=== PATIENT | male | born 1950 | race Caucasian/White ===

== ENCOUNTER 2021-12-09 13:47 | Inpatient (IN) ==
[2021-12-09] MEDS ORDERED: dexAMETHasone**PF** 10 MG/ML VIAL IV ONE (14:13)
[2021-12-09] MEDS ORDERED: SODIUM CHLORIDE 0.9% 500 ML IV ONE (14:13)
--- NOTE | 2021-12-09 14:17 | Emergency Department Note ---
Impression & Plan Difficulty in swallowing, Tonsillar cancer, Throat swelling ED Provider Note Provider: Han Breen MD DATE OF SERVICE: 12/09/2021 CHIEF COMPLAINT: HISTORY OF PRESENT ILLNESS: Patient is a 71-year-old gentleman past medical history including CAD, diverticulitis, COVID, gout, and head neck cancer following with oncology currently on chemotherapy presenting here today stating that he is having pain in his throat and difficulty eating and drinking. Patient states he believes is related to chemotherapy with his last treatment last week. States he feels like his throat is closing up. Reports has not been able to eat and drink and again choked on pills last night. He reports spitting up a bit of blood with this last night. No further episodes today and was able to take some of his smaller pills and small amount of liquid. Not able to eat today. Patient states this is 6 around the chemotherapy and has had sore throat each time but this seems to be a bit worse. No fevers reported. Some body aches particular in the joints and left elbow reported. No falls reported. Denies any difficulty breathing or speaking. Patient reports a history of radiation here but no prior surgeries on the neck. Talked with his oncologist who referred him here today. REVIEW OF SYSTEMS: A total of 10 review of systems was obtained and negative except as stated above in the HPI. PAST MEDICAL HISTORY: As noted above MEDICATIONS: Reviewed home medications SOCIAL HISTORY: , lives at home PHYSICAL EXAM: GENERAL: alert and oriented in no acute distress on stretcher Head: normocephalic and atraumatic EYES: No injection, discharge or icterus. PERRL NECK: Trachea midline. Supple. ENT: Mucous membranes pink and moist. Pharynx without erythema or exudate visualized to the oropharynx LUNGS: Airway patent. No retractions. Breath sounds clear with good air entry bilaterally. HEART: Regular rate and rhythm. No chest wall tenderness with left upper chest port in place and healed surgical scar over the left shoulder. ABDOMEN: Soft and non-tender, without guarding or rebound. SKIN: Acyanotic, warm, dry, without rashes EXTREMITIES: Without swelling, tenderness or deformity NEUROLOGICAL: No focal deficits. No aphasia. No facial droop or slurred speech. Patient's laboratory studies and imaging reviewed. Differential includes Viral syndrome, tonsillitis, streptococcal pharyngitis, mononucleosis, peritonsillar abscess, retropharyngeal abscess, influenza, mass/head neck cancer as well as other pathologies. IMPRESSION/MEDICAL DECISION MAKING: Patient in no respiratory distress not stridulous here without complaints of breathing issues. History of head neck cancer with prior radiation currently on chemotherapy with some sore throat developing over the past 7 days or so. Was on steroids about 10 days ago. Reports difficulty now swallowing liquids such as water as well as some of his larger pills. He called his oncologist who referred him here. No gross evidence of significant neck swelling or pharyngeal edema on gross physical exam at bedside. Given some IV fluids given decreased intake and sent for CT scan of the neck to look for underlying structural abnormality given his history of cancer here. Given a dose of steroids for anti-inflammatory effect given reported history. Blood work with slightly elevated white blood cell count of 12.2 and hemoglobin slightly higher at 10.6 although platelets are slightly lower at 117. Electrolytes, LFTs, and renal function without severe abnormality. CT scan of the neck per radiology with findings of modest mucosal edema and thickening within the uvula, hypopharynx, epiglottis, and false vocal cords. Question if this is reaction to chemotherapy. Discussed with oncology. Again patient not stridulous and I doubt this is infectious given the presentation. On reevaluation the patient was stating he was having some improvement but still not resolution of symptoms. Oncology reports this can be a complication with mucositis and inflammation of the veins of the throat. Again the patient does not present with significant infectious symptomatologies. Had some improvement with the Dex but in shared decision making he wished to stay for continued IV steroids and further improvement before going an home an hour away. Discussed with the hospitalist. DIAGNOSIS: Laryngeal cancer, difficulty swallowing, throat edema DISPOSITION: Hospitalist will evaluate Patient was agreeable with this plan. 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 Symptoms at time of cough/congestion- resolved few days later. Patient states he had subsequent negative home test. MRSA (methicillin resistant staph aureus) culture positive 11 years ago lungs and blood > "has been cleared" Surgical History H/O colonoscopy H/O hernia repair H/O knee surgery R/L replacements H/O shoulder surgery R/L shoulder replacements History of back surgery History of cardiac cath 2016 > BMS x1, 11/20/2019 > nonobstructive disease and patent RCA stent History of CEA (carotid endarterectomy) right (2014) Hx of appendectomy Hx of elbow surgery ulnar nerve Port-A-Cath in place (07/30/21) Access port placement with fluoroscopy. Dr. Spann 07/30/2021 Family History Aunt Breast cancer Cancer Brother Cancer Diabetes Mother Hypertension Grandmother (Maternal) Stroke Grandfather (Paternal) Stroke Uncle Cancer Father COPD (chronic obstructive pulmonary disease) Social History Smoking Status: Never smoker Second Hand Exposure: No; Hx Alcohol Use: No Hx Substance Use: No Preferred Language: [place]ian Communication Ability: Effective Surgical Garment [employer]er Required: No Beliefs That Will Affect Care: None marital status: Current Living Situation: Spouse How many Children do You have: 4 Feels Safe at Home: Yes Assistive Devices: None Allergies Allergies Allergy/AdvReac Type Severity Reaction Status Date / Time Penicillins Allergy Mild Rash Verified 12/09/21 19:46 adhesive AdvReac Mild Verified 12/09/21 19:46 Home Meds Home Medications Medication Instructions Recorded Confirmed pantoprazole 40 mg tablet,delayed 40 mg PO QAM 07/19/21 12/09/21 release rosuvastatin 40 mg tablet 40 mg PO QAM 07/19/21 12/09/21 tramadol 50 mg tablet 100 mg PO QAM MDD 6 TABS 07/20/21 12/09/21 bisoprolol fumarate 5 mg tablet 2.5 mg PO DAILY tab 10/04/21 12/09/21 multivitamin 1 tab PO DAILY 10/04/21 12/09/21 aspirin 81 mg chewable tablet 81 mg PO PRN tab 10/06/21 12/09/21 tramadol 50 mg tablet 50 mg PO QID PRN MDD 6 TABS 12/09/21 12/09/21 Results & Data (ED) Vital Signs Vital Signs - 24 hr 12/09/21 13:49 12/09/21 14:20 12/09/21 15:30 Temperature 36.4 C L Temperature Source Temporal Artery Scan Pulse Rate 104 H Pulse Rate [Apical] 80 Pulse Rhythm Regular Pulse Strength Normal Respiratory Rate 20 19 Respiratory Effort / Characteristics Non-Labored Spontaneous Respiratory Depth Normal Respiratory Pattern Regular Blood Pressure 120/73 Blood Pressure [Left Arm] 105/63 Blood Pressure Mean 88 Blood Pressure Mean [Left Arm] 77 Blood Pressure Position Sitting Pulse Oximetry 98 98 99 Oxygen Delivery Method Room Air Room Air Room Air Sepsis Recent Fever Within 48 Hours No Sepsis New/Unexplained Change in Mental Status N/A Sepsis Action Taken by Nursing No Action Required 12/09/21 17:00 12/09/21 19:00 Temperature Temperature Source Pulse Rate Pulse Rate [Apical] 72 73 Pulse Rhythm Pulse Strength Respiratory Rate 19 16 Respiratory Effort / Characteristics Respiratory Depth Respiratory Pattern Blood Pressure Blood Pressure [Left Arm] 111/74 95/61 L Blood Pressure Mean Blood Pressure Mean [Left Arm] 86 72 Blood Pressure Position Pulse Oximetry 97 95 Oxygen Delivery Method Room Air Room Air Sepsis Recent Fever Within 48 Hours Sepsis New/Unexplained Change in Mental Status Sepsis Action Taken by Nursing Laboratory Data Result diagrams: 12/09/21 14:20 12/09/21 14:20 Lab Results 12/09/21 12/09/21 12/09/21 Range/Units 14:20 14:20 15:23 WBC 12.27 H (4.8-10.8) K/uL RBC 3.05 L (4.7-6.1) M/uL Hgb 10.6 L (14.0-18.0) g/dL Hct 31.6 L (42-52) % MCV 103.6 H (80-100) fL MCH 34.8 H (25-34) pg MCHC 33.5 (32-36) g/dL RDW Std Deviation 79.3 H (36.4-46.3) fL RDW Coeff of Kris 21.1 H (11.5-14.5) % Plt Count 117 L (130-400) K/uL MPV 9.5 (7.4-10.4) fL Neutrophils % (Manual) 87.8 % Lymphocytes % (Manual) 6.1 % Monocytes % (Manual) 6.1 % Neutrophils # (Manual) 10.77 H (1.4-6.5) K/uL Total Absolute Neuts 10.77 H (1.4-6.5) K/uL Lymphocytes # (Manual) 0.75 L (1.2-3.4) K/uL Total Abs Lymphocytes 0.75 L (1.2-3.4) K/uL Monocytes # (Manual) 0.75 H (0.11-0.59) K/uL Polychromasia 1+ Anisocytosis Present Tear Drop Cells 1+ Sodium 137 (136-145) mmol/L Potassium 4.1 (3.5-5.1) mmol/L Chloride 102 (98-107) mmol/L Carbon Dioxide 26 (21-32) mmol/L Anion Gap 9 (3-11) BUN 31 H (6-23) mg/dl Creatinine 1.34 (0.6-1.4) mg/dl Est Cr Clr Drug Dosing 50.6 ml/min Est GFR ( Amer) 61.3 ml/min Est GFR (Non-Af Amer) 52.9 ml/min BUN/Creatinine Ratio 23.1 H (10-20) Glucose 119 H (70-99(Fasting)) mg/dl Calcium 9.2 (8.5-10.1) mg/dl Magnesium 1.9 (1.7-2.4) mg/dl Total Bilirubin 0.7 (0.2-1.0) mg/dl AST 17 (13-39) U/L ALT 16 (7-52) U/L Alkaline Phosphatase 78 (34-104) U/L Total Protein 6.7 (6.0-8.3) gm/dl Albumin 4.0 (3.4-5.0) gm/dl Globulin 2.7 (2.5-4.0) gm/dl Albumin/Globulin Ratio 1.5 (0.9-2) SARS-CoV-2 (PCR) NEGATIVE (Negative) Influenza Type A (PCR) Negative (Neg) Influenza Type B (PCR) Negative (Neg) RSV (RT-PCR) Negative (Neg) Administered Medications Discontinued Medications Dexamethasone Sodium Phosphate (DexamethasonePf 10 Mg/Ml Vial) 10 mg IV NOW ONE Stop: 12/09/21 14:14 Last Admin: 12/09/21 14:27 Dose: 10 mg Documented by: [id number] Sodium Chloride (Nss) 500 mls @ 999 mls/hr IV .Q31M ONE Stop: 12/09/21 14:43 Last Infusion: 12/09/21 15:00 Dose: 0 mls/hr Documented by: [id number] Admin: 12/09/21 14:27 Dose: 999 mls/hr Documented by: [id number] Ioversol (Optiray 320 100ml) 94 ml IV ONCE ONE Stop: 12/09/21 16:21 Last Admin: 12/09/21 16:21 Dose: 94 ml Documented by: [id number] Imaging Data Radiologist's Impression: Soft Tissue Neck CT 12/09/21 13:58 CT soft tissue neck w con HISTORY: Cancer history, throughout swelling, difficulty swallowing TECHNIQUE: Multiaxial CT images of the neck were performed following the intr avenous administration of 94 cc of Optiray 320. Sagittal coronal reformations were performed at the workstation by the radiologist. COMPARISON STUDY: None. FINDINGS: There is moderate submucosal edema/thickening within the uvula, mucosal linings of the hypopharynx, epiglottis, and false vocal cords. This could represent post radiation change or angioedema-type reaction. An epiglottitis/pharyngitis could also have a similar appearance in the appropriate clinical setting. The epiglottis measures up to 5 mm in thickness. There is also a submucosal edema within the vallecula. The paravertebral fat spaces are maintained. No abscess identified. There is mild narrowing of the hypopharynx. Questionable mild submucosal edema at the 4 focal cords. No abscess or lymphadenopathy identified. Multiple irregular/spiculated masses within the lung apices some which demonstrate cavitation. Dominant right apical mass measures 2.4 cm. This is consistent with metastatic disease. No suspicious osseous lesions identified. The paranasal sinuses and mastoid air cells are clear. The orbits and visualized brain parenchyma are unremarkable. Moderate calcified plaque within the left carotid bifurcation resulting in mild narrowing of the distal left common carotid artery and proximal left internal carotid artery. The right carotid arteries are widely patent. The parotid and submandibular glands are symmetric. The thyroid gland enhances normally. There is trace prevertebral edema. Partially visualized left subclavian Port-A-Cath is noted. Mild thickeni ng of the carotid tinsley of the bifurcation. This also favors post radiation change. IMPRESSION: 1. There is moderate submucosal edema/thickening within the uvula, mucosal linings of the hypopharynx, epiglottis, and false vocal cords. This could r epresent post radiation change or angioedema-type reaction. An epiglottitis/pharyngitis could also have a similar appearance in the appropriate clinical setting. 2. Pulmonary metastatic disease again noted. 3. Additional findings as described above. ACT 112: Negative or not required by law. Electronically signed by: Dung Velazquez M.D. 12/09/2021 4:38 PM Discharge Plan Visit Data Chief Complaint: Sore Throat Stated Complaint: THROAT CLOSING ED Provider: Han Breen Discharge Problem: Difficulty in swallowing, Tonsillar cancer, Throat swelling Patient Disposition: Being Evaluated by Hospitalist Forms Stand Alone Forms: [facility] Prescriptions Prescriptions: No Action bisoprolol fumarate 5 mg tablet 2.5 mg PO DAILY RF: 0 multivitamin Tablet 1 tab PO DAILY RF: 0 pantoprazole 40 mg tablet,delayed release (DR/EC) 40 mg PO QAM RF: 0 rosuvastatin 40 mg tablet 40 mg PO QAM RF: 0 tramadol 50 mg tablet 100 mg PO QAM MDD 6 TABS RF: 0 aspirin 81 mg tablet,chewable 81 mg PO PRN RF: 0 tramadol 50 mg tablet 50 mg PO QID MDD 6 TABS PRN (Reason: Pain) RF: 0 Referrals Referrals: PCP,NO [Primary Care Provider] - Discharge Problem: Difficulty in swallowing Qualifiers: Dysphagia type: unspecified Qualified Code(s): R13.10 - Dysphagia, unspecified
[2021-12-09 14:40] LABS: Mean Corpuscular Hgb Conc 33.5 g/dL (32-36); Mean Platelet Volume 9.5 fL (7.4-10.4); Platelet Count 117 K/uL (130-400)
[2021-12-09 15:11] LABS: ALC (manual) 0.75 K/uL (1.2-3.4); ANC (manual) 10.77 K/uL (1.4-6.5); Anisocytosis Present; Hematocrit (blood only) 31.6 % (42-52); Hemoglobin 10.6 g/dL (14.0-18.0); Lymphocytes # (manual) 0.75 K/uL (1.2-3.4); Lymphocytes % (manual) 6.1 %; Mean Corpuscular Hemoglobin 34.8 pg (25-34); Mean Corpuscular Volume 103.6 fL (80-100); Monocytes # (manual) 0.75 K/uL (0.11-0.59); Monocytes % (manual) 6.1 %; Neutrophils # (manual) 10.77 K/uL (1.4-6.5); Neutrophils % (manual) 87.8 %; Polychromasia 1+; RDW Coefficient of Variation 21.1 % (11.5-14.5); RDW Standard Deviation 79.3 fL (36.4-46.3); Red Blood Count 3.05 M/uL (4.7-6.1); Tear Drop Cells 1+; White Blood Count 12.27 K/uL (4.8-10.8)
[2021-12-09 15:55] LABS: Albumin Globulin Ratio 1.5 (0.9-2); BUN Creatinine Ratio 23.1 (10-20); Bilirubin,Total 0.7 mg/dl (0.2-1.0); Calcium 9.2 mg/dl (8.5-10.1); Creatinine Clr Calc Pharmacy 50.6 ml/min; Est GFR (African American) 61.3 ml/min; Est GFR (Non-African American) 52.9 ml/min; Globulin 2.7 gm/dl (2.5-4.0); Magnesium 1.9 mg/dl (1.7-2.4); Total Protein 6.7 gm/dl (6.0-8.3)
[2021-12-09 16:17] LABS: Potassium 4.1 mmol/L (3.5-5.1)
[2021-12-09] MEDS ORDERED: OPTIRAY 320 100ml IV ONE (16:20)
--- NOTE | 2021-12-09 16:39 | CT Scan Report ---
CT soft tissue neck w con HISTORY: Cancer history, throughout swelling, difficulty swallowing TECHNIQUE: Multiaxial CT images of the neck were performed following the intravenous administration o f 94 cc of Optiray 320. Sagittal coronal reformations were performed at the workstation by the radiol ogist. COMPARISON STUDY: None. FINDINGS: There is moderate submucosal edema/thickening within the uvula, mucosal linings of the hypo pharynx, epiglottis, and false vocal cords. This could represent post radiation change or angioedema- type reaction. An epiglottitis/pharyngitis could also have a similar appearance in the appropriate cl inical setting. The epiglottis measures up to 5 mm in thickness. There is also a submucosal edema wit hin the vallecula. The paravertebral fat spaces are maintained. No abscess identified. There is mild narrowing of the hypopharynx. Questionable mild submucosal edema at the 4 focal cords. No abscess or lymphadenopathy identified. Multiple irregular/spiculated masses within the lung apices some which de monstrate cavitation. Dominant right apical mass measures 2.4 cm. This is consistent with metastatic disease. No suspicious osseous lesions identified. The paranasal sinuses and mastoid air cells are cl ear. The orbits and visualized brain parenchyma are unremarkable. Moderate calcified plaque within th e left carotid bifurcation resulting in mild narrowing of the distal left common carotid artery and p roximal left internal carotid artery. The right carotid arteries are widely patent. The parotid and s ubmandibular glands are symmetric. The thyroid gland enhances normally. There is trace prevertebral e sarah. Partially visualized left subclavian Port-A-Cath is noted. Mild thickening of the carotid tinsley of the bifurcation. This also favors post radiation change. IMPRESSION: 1. There is moderate submucosal edema/thickening within the uvula, mucosal linings of the hypopharynx , epiglottis, and false vocal cords. This could represent post radiation change or angioedema-type re action. An epiglottitis/pharyngitis could also have a similar appearance in the appropriate clinical setting. 2. Pulmonary metastatic disease again noted. 3. Additional findings as described above. ACT 112: Negative or not required by law. Electronically signed by: Dung Velazquez M.D. 12/09/2021 4:38 PM
[2021-12-09 16:58] LABS: Influenza A virus by PCR Negative (Neg); Influenza B virus by PCR Negative (Neg); RSV by PCR Negative (Neg); SARS CoV2 RNA(COVID-19) InHosp NEGATIVE (Negative)
--- NOTE | 2021-12-09 17:54 | History & Physical Report ---
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- he reports he has not had once since moving here (2) Tonsillar cancer: Plan: As above and per HPI (3) Throat swelling: Plan: As above (4) Hyperlipidemia: Plan: Continue with Rosuvastatin 40mg PO daily (5) Ascending aortic aneurysm: Plan: Last imaged in 2019 4.4 - continue with BB and cholesterol management - screenings with cardiology (6) Carotid stenosis: Plan: As above remain with BP control and lipid control screening with cardiology group (7) CAD (coronary artery disease): Plan: Single BMS to RCA 2015 - continue asa, BB, statin (8) High blood pressure: Plan: As above History of Present Illness Primary Care Provider: NO PCP 71 YOM with medical history of: Squamous cell carcinoma of the left tonsil,, 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 Patient comes to the EMD today for complaints of increase in throat pain and difficulty swelling. Patient is still undergoing chemotherapy and is on cycle #2 whic appears to be carboplatin in combination with 5FU and pembrolizumab. He normally has some difficulty with dysphagia and has adjusted to this, but is having increase difficulty with swallowing small amount of liquid as well as his pills. He endorses difficulty swallowing a pill last night that resulted in him coughing quite a bit before getting it to come up. He normally will take his medications with a glass of milk, preferably chocolate. The patient had routine labs performed in the EMD and CT soft tissue of the neck. Labs were remarkable for mild leukocytosis- patient just received Neulasta- and CT scan of the neck was notable for moderate submucosal thickening within the uvula, hypopharynx, epiglottis and false chords. Patient was given 10mg IV Decadron in the EMD. Patient will be admitted for observation of his symptoms to improve with systemic steroids, will continue with magic mouthwash, and oral moisturizer. Will continue with Decadron 6mg IV q12 hours starting tomorrow. May benefit from updated swallow study. COVID and Influenza tests on admission are: NEGATIVE Allergies Allergy/AdvReac Type Severity Reaction Status Date / Time Penicillins Allergy Mild Rash Verified 12/09/21 19:46 adhesive AdvReac Mild Verified 12/09/21 19:46 Home Medications Medication Instructions Recorded Confirmed Type pantoprazole 40 mg tablet,delayed 40 mg PO QAM 07/19/21 12/09/21 History release rosuvastatin 40 mg tablet 40 mg PO QAM 07/19/21 12/09/21 History tramadol 50 mg tablet 100 mg PO QAM MDD 6 TABS 07/20/21 12/09/21 History bisoprolol fumarate 5 mg tablet 2.5 mg PO DAILY tab 10/04/21 12/09/21 History multivitamin 1 tab PO DAILY 10/04/21 12/09/21 History aspirin 81 mg chewable tablet 81 mg PO PRN tab 10/06/21 12/09/21 History tramadol 50 mg tablet 50 mg PO QID PRN MDD 6 TABS 12/09/21 12/09/21 History Past Med/Surg History Medical History CAD (coronary artery disease) Single vessel CAD s/p BMS to RCA (2015) Cancer tongue, tonsil, 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 Symptoms at time of cough/congestion- resolved few days later. Patient states he had subsequent negative home test. MRSA (methicillin resistant staph aureus) culture positive 11 years ago lungs and blood > "has been cleared" Surgical History H/O colonoscopy H/O hernia repair H/O knee surgery R/L replacements H/O shoulder surgery R/L shoulder replacements History of back surgery History of cardiac cath 2015 > BMS x1, 11/20/2019 > nonobstructive disease and patent RCA stent History of CEA (carotid endarterectomy) right (2014) Hx of appendectomy Hx of elbow surgery ulnar nerve Port-A-Cath in place (07/30/21) Access port placement with fluoroscopy. Dr. Spann 07/30/2021 Family History Aunt Breast cancer Cancer Brother Cancer Diabetes Mother Hypertension Grandmother (Maternal) Stroke Grandfather (Paternal) Stroke Uncle Cancer Father COPD (chronic obstructive pulmonary disease) Social History Smoking Status: Never smoker Second Hand Exposure: Yes (childhood); Tobacco Cessation Education Requested by Patient: No Hx Alcohol Use: No Hx Substance Use: No Preferred Language: French Communication Ability: Effective Reel Stripper Required: Yes Beliefs That Will Affect Care: None marital status: Current Living Situation: Spouse How many Children do You have: 4 Other Information That Helps Us Care for You: No Feels Safe at Home: Yes Safety Concerns: Feels Safe At This Time Assistive Devices: Glasses and Hearing Aid - Bilateral Review of Systems Review of Systems: REVIEW OF SYSTEMS: Constitutional: No fever, sweats or chills Eyes: No diplopia, no worsening or blurred vision ENT:(+) difficulty swallowing Respiratory: No cough, sputum, dyspnea at rest or on exertion Cardiovascular: No chest pain, tightness or palpitations Abdomen: No pain, nausea, vomiting, diarrhea or constipation Musculoskeletal: No joint pain, calf pain, swelling Neurologic: No weakness, numbness/tingling, or balance problems Psychiatric: No anxiety or depression Skin: No rash or itch Physical Exam Physical Exam: PHYSICAL EXAM: General: awake, alert, no apparent distress Head: Normocephalic, atraumatic ENT: PERRL, EOMI, no pharyngeal exudate, mucous membranes moist, no lesions or abscess noted to soft palate or hypopharynx, no enlarged cervical node, trachea midline. Neuro: AAO x 3, speech clear and appropriate, strength intact bilaterally 5/5, sensation intact and equal all extremities and dermatomes, no pronator drift Chest: equal rise and fall of the chest, no accessory muscle use, no heaves or thrills, Clear to auscultation, on room air, Cardiac: Regular rate and rhythm, telemetry reviewed, skin warm dry, cap refill <3 seconds, peripheral pulses +2 no JVD, no murmur, GI: NABS x 4 quadrants, soft, nontender to palpation, no rebound, guarding or tenderness : Spontaneously voiding, no pain, no CVA tenderness, Extremities: Normal inspection, no peripheral edema or erythema, calfs nontender to palpation Psych: Normal mood and affect Skin: no rash or erythema Results & Data Results & Data ([facility]) Vital Signs (Past 12 Hours) Vital Signs Temp Pulse Pulse Resp BP BP Pulse Ox 12/09/21 15:30 80 19 105/63 99 12/09/21 14:20 98 12/09/21 13:49 36.4 C L 104 H 20 120/73 98 Laboratory Results Abnormal lab results 12/09/21 12/09/21 Range/Units 14:20 14:20 WBC 12.27 H (4.8-10.8) K/uL RBC 3.05 L (4.7-6.1) M/uL Hgb 10.6 L (14.0-18.0) g/dL Hct 31.6 L (42-52) % MCV 103.6 H (80-100) fL MCH 34.8 H (25-34) pg RDW Std Deviation 79.3 H (36.4-46.3) fL RDW Coeff of Kris 21.1 H (11.5-14.5) % Plt Count 117 L (130-400) K/uL Neutrophils # (Manual) 10.77 H (1.4-6.5) K/uL Total Absolute Neuts 10.77 H (1.4-6.5) K/uL Lymphocytes # (Manual) 0.75 L (1.2-3.4) K/uL Total Abs Lymphocytes 0.75 L (1.2-3.4) K/uL Monocytes # (Manual) 0.75 H (0.11-0.59) K/uL BUN 31 H (6-23) mg/dl BUN/Creatinine Ratio 23.1 H (10-20) Glucose 119 H (70-99(Fasting)) mg/dl Diagnostic Findings Soft Tissue Neck CT 12/09/21 13:58 CT soft tissue neck w con HISTORY: Cancer history, throughout swelling, difficulty swallowing TECHNIQUE: Multiaxial CT images of the neck were performed following the intravenous administration of 94 cc of Optiray 320. Sagittal coronal reformations were performed at the workstation by the radiologist. COMPARISON STUDY: None. FINDINGS: There is moderate submucosal edema/thickening within the uvula, mucosal linings of the hypopharynx, epiglottis, and false vocal cords. This could represent post radiation change or angioedema-type reaction. An epiglottitis/pharyngitis could also have a similar appearance in the appropriate clinical setting. The epiglottis measures up to 5 mm in thickness. There is also a submucosal edema within the vallecula. The paravertebral fat spaces are maintained. No abscess identified. There is mild narrowing of the hypopharynx. Questionable mild submucosal edema at the 4 focal cords. No abscess or lymphadenopathy identified. Multiple irregular/spiculated masses within the lung apices some which demonstrate cavitation. Dominant right apical mass measures 2.4 cm. This is consistent with metastatic disease. No suspicious osseous lesions identified. The paranasal sinuses and mastoid air cells are clear. The orbits and visualized brain parenchyma are unremarkable. Moderate calcified plaque within the left carotid bifurcation resulting in mild narrowing of the distal left common carotid artery and proximal left internal carotid artery. The right carotid arteries are widely patent. The parotid and submandibular glands are symmetric. The thyroid gland enhances normally. There is trace prevertebral edema. Partially visualized left subclavian Port-A-Cath is noted. Mild thickening of the carotid tinsley of the bifurcation. This also favors post radiation change. IMPRESSION: 1. There is moderate submucosal edema/thickening within the uvula, mucosal linings of the hypopharynx, epiglottis, and false vocal cords. This could represent post radiation change or angioedema-type reaction. An epiglottitis/pharyngitis could also have a similar appearance in the appropriate clinical setting. 2. Pulmonary metastatic disease again noted. 3. Additional findings as described above. ACT 112: Negative or not required by law. Electronically signed by: Dung Velazquez M.D. 12/09/2021 4:38 PM Medications Administered Discontinued Medications Dexamethasone Sodium Phosphate (DexamethasonePf 10 Mg/Ml Vial) 10 mg IV NOW ONE Stop: 12/09/21 14:14 Last Admin: 12/09/21 14:27 Dose: 10 mg Documented by: [id number] Sodium Chloride (Nss) 500 mls @ 999 mls/hr IV .Q31M ONE Stop: 12/09/21 14:43 Last Infusion: 12/09/21 15:00 Dose: 0 mls/hr Documented by: [id number] Admin: 12/09/21 14:27 Dose: 999 mls/hr Documented by: [id number] Ioversol (Optiray 320 100ml) 94 ml IV ONCE ONE Stop: 12/09/21 16:21 Last Admin: 12/09/21 16:21 Dose: 94 ml Documented by: [id number] Home Medications pantoprazole 40 mg tablet,delayed release 40 mg PO QAM 07/19/21 [History Confirmed 11/22/21] rosuvastatin 40 mg tablet 40 mg PO QAM 07/19/21 [History Confirmed 11/22/21] tramadol 50 mg tablet 50 mg PO BID PRN 07/20/21 [History Confirmed 11/22/21] bisoprolol fumarate 5 mg tablet 2.5 mg PO DAILY tab 10/04/21 [History Confirmed 11/22/21] hydrochlorothiazide 25 mg tablet 25 mg PO DAILY 10/04/21 [History Confirmed 11/22/21] multivitamin 1 tab PO DAILY 10/04/21 [History Confirmed 11/22/21] aspirin 81 mg chewable tablet 81 mg PO PRN tab 10/06/21 [History Confirmed 11/22/21] ECG Additional Comments: pending on admission Code Status & VTE Plan Code Status CODE: FULL VTE: SCDS, Lovenox 40mg sub q daily VTE Prophylaxis Plan VTE Prophylaxis will be ordered: Yes Supervising Physician Co-Signing Physician Notes I supervised DORIS Lopez on this admission. I interviewed and examined the patient independently of him. The plan is as written in his note except for any following changes/exceptions: None 71yo M w/ hx of Stage IV SCC of the tonsil. Underwent chemo and radiation with radiation finishing ~05/2020. None since then per oncology notes. However, presently undergoing carboplatin, 5FU, and Keytruda for his newly discovered metastatic disease. Per oncology provider, he had a mild case of mucositis with prior treatment cycle, but did not need hospitalization. Recommends dexamethasone systemic and swish and swallow along with symptomatic therapies. PG Care Time/CCT Total # of Minutes Spent Total Time Spent with Patient: Total time spent is greater than 50% in coordination of care (as documented) at patient's floor/unit and/or counseling patient: Coding Level of Care Code 11672 Initial Inpt Care Lvl 2 Diagnoses Difficulty in swallowing R13.10 Dysphagia type: unspecified Throat swelling R22.1 Hyperlipidemia E78.5 Ascending aortic aneurysm I71.2 Carotid stenosis I65.29 CAD (coronary artery disease) I25.10 Tonsillar cancer C09.9 High blood pressure I10 (1) Difficulty in swallowing Dysphagia type: unspecified Qualified Code(s): R13.10 - Dysphagia, unspecified
[2021-12-09] MEDS ORDERED: traMADol HCL 50 MG TABLET PO PRN (21:04)
[2021-12-09] MEDS: FIRST - Mouthwash BLM 119 ML PO SCH (21:42)
[2021-12-10] MEDS: FIRST - Mouthwash BLM 119 ML PO SCH ×3 (05:24→22:06)
[2021-12-10] MEDS: ASPIRIN 81 MG CHEW PO SCH (07:58)
[2021-12-10] MEDS: BISOPROLOL FUMARATE 5 MG TAB PO SCH (07:58)
[2021-12-10] MEDS: dexAMETHasone 6 MG in SYRINGE 0 ML IV SCH ×2 (07:59→20:05)
[2021-12-10] MEDS: HEPARIN 100 UNIT/ML 5ML FLUSH IV PRN (08:02)
[2021-12-10] MEDS: DEXAMETHASONE 5 MG/5 ML UDP PO SCH ×4 (08:02→20:05)
[2021-12-10] MEDS: ENOXAPARIN INJ 40 MG/0.4 ML SYR SQ SCH (08:03)
[2021-12-10] MEDS: hydroCHLOROthiazide 25 MG TAB PO SCH (08:03)
[2021-12-10] MEDS: PANTOprazole 40 MG TAB PO SCH (08:04)
[2021-12-10] MEDS: ROSUVASTATIN CALCIUM 20 MG TAB PO SCH (08:04)
[2021-12-10 08:46] LABS: Basophils # (auto) 0.01 K/uL (0-0.2); Basophils % (auto) 0.1 %; Hematocrit (blood only) 27.9 % (42-52); Hemoglobin 9.5 g/dL (14.0-18.0); Immature Granulocytes # (auto) 0.06 K/uL (0.00-0.02); Immature Granulocytes % (auto) 0.4 %; Lymphocytes # (auto) 0.93 K/uL (1.2-3.4); Lymphocytes % (auto) 6.1 %; Mean Corpuscular Hemoglobin 34.9 pg (25-34); Mean Corpuscular Hgb Conc 34.1 g/dL (32-36); Mean Corpuscular Volume 102.6 fL (80-100); Mean Platelet Volume 9.6 fL (7.4-10.4); Monocytes # (auto) 2.26 K/uL (0.11-0.59); Monocytes % (auto) 14.8 %; Neutrophils # (auto) 11.97 K/uL (1.4-6.5); Neutrophils % (auto) 78.6 %; Platelet Count 111 K/uL (130-400); RDW Coefficient of Variation 20.9 % (11.5-14.5); RDW Standard Deviation 77.1 fL (36.4-46.3); Red Blood Count 2.72 M/uL (4.7-6.1); White Blood Count 15.23 K/uL (4.8-10.8)
[2021-12-10 09:19] LABS: BUN Creatinine Ratio 26.7 (10-20); Calcium 9.1 mg/dl (8.5-10.1); Creatinine Clr Calc Pharmacy 58.4 ml/min; Potassium 3.7 mmol/L (3.5-5.1)
[2021-12-10 09:25] LABS: Anisocytosis Present; Macrocytosis Present; Toxic Granulation 1+
--- NOTE | 2021-12-10 12:12 | Electrocardiogram Report ---
Test Reason : Blood Pressure : / mmHG Vent. Rate : 077 BPM Atrial Rate : 077 BPM P-R Int : 154 ms QRS Dur : 078 ms QT Int : 372 ms P-R-T Axes : 060 044 058 degrees QTc Int : 420 ms Normal sinus rhythm Normal ECG No previous ECGs available Confirmed by Mehul Newman ([id number]) on 12/10/2021 12:12:36 PM Referred By: REFERRED SELF Confirmed By:Woody Newman
--- NOTE | 2021-12-10 14:06 | Fluoroscopy Report ---
MODIFIED BARIUM SWALLOW CLINICAL HISTORY: r/o aspiration. Head and neck cancer. COMPARISON STUDY: Neck CT December 09, 2021. FLUOROSCOPY TIME: 2.4 minutes. TECHNIQUE: A modified barium swallow was performed in conjunction with Speech Pathology. The patient ingested varying consistencies of barium containing material. Video fluoroscopy was performed. FINDINGS: No aspiration was identified with thin liquids, mildly thick liquids, pudding consistency o r crackers with paste. Liquid wash was necessary with crackers with paste. Multiple swallows were nec essary with several consistencies. Epiglottic inversion was normal. Laryngeal elevation was normal. IMPRESSION: 1. No tracheal aspiration identified. 2. Multiple swallows and liquid wash necessary with several consistencies. 3. Full recommendations by Speech pathology to follow. ACT 112: Negative or not required by law. Electronically signed by: Tonio Wasserman M.D. 12/10/2021 2:04 PM
--- NOTE | 2021-12-10 21:19 | Hospitalist Progress Note ---
Date of Service December 10, 2021 Assessment & Plan (1) Difficulty in swallowing: Plan: Likely effect from his chemotherapy- his last radiation therapy was in 2020 - Will support with IV Decadron- 10mg IV already given by EMD- transition to 4- 6mg IV q12 starting today 12/10 - Magic mouthwash swish and swallow - oral moisturizer - may bring from home- pother browning use manuel stock - Medication with carrier- patient prefers milk - patient did well on speech eval. will monitor overnight, if continues to do well, will discharge on slow steroid taper. (2) Tonsillar cancer: Plan: As above and per HPI (3) Throat swelling: Plan: As above (4) Hyperlipidemia: Plan: Continue with Rosuvastatin 40mg PO daily (5) Ascending aortic aneurysm: Plan: Last imaged in 2018 4.4 - continue with BB and cholesterol management - screenings with cardiology (6) Carotid stenosis: Plan: As above remain with BP control and lipid control screening with cardiology group (7) CAD (coronary artery disease): Plan: Single BMS to RCA 2015 - continue asa, BB, statin (8) High blood pressure: Plan: As above Admission and Anticipated Discharge Date Admission Date: December 09, 2021 Subjective 71 yo reports he is swallowing better. Review of Systems Review of Systems: All systems reviewed & are unremarkable except as noted in HPI & below Physical Exam Physical Exam: General: awake, alert, no apparent distress Head: Normocephalic, atraumatic ENT: PERRL, EOMI, no pharyngeal exudate, mucous membranes moist, no lesions or abscess noted to soft palate or hypopharynx, no enlarged cervical node, trachea midline. Neuro: AAO x 3, speech clear and appropriate, strength intact bilaterally 5/5, sensation intact and equal all extremities and dermatomes, no pronator drift Chest: equal rise and fall of the chest, no accessory muscle use, no heaves or thrills, Clear to auscultation, on room air, Cardiac: Regular rate and rhythm, telemetry reviewed, skin warm dry, cap refill <3 seconds, peripheral pulses +2 no JVD, no murmur, GI: NABS x 4 quadrants, soft, nontender to palpation, no rebound, guarding or tenderness : Spontaneously voiding, no pain, no CVA tenderness, Extremities: Normal inspection, no peripheral edema or erythema, calfs nontender to palpation Psych: Normal mood and affect Skin: no rash or erythema Results & Data Results & Data ([facility]) Vital Signs (Past 12 Hours) Vital Signs Temp Pulse Resp BP Pulse Ox 12/10/21 15:02 36.9 C 66 18 101/62 99 PG Care Time/CCT Total # of Minutes Spent Total Time Spent with Patient: Total time spent is greater than 50% in coordination of care (as documented) at patient's floor/unit and/or counseling patient: Coding Level of Care Code 60044 Subseq Hosp Care Lvl 2 Diagnoses Difficulty in swallowing R13.10 Dysphagia type: unspecified Tonsillar cancer C09.9 Throat swelling R22.1 Hyperlipidemia E78.5 Ascending aortic aneurysm I71.2 Carotid stenosis I65.29 CAD (coronary artery disease) I25.10 High blood pressure I10 (1) Difficulty in swallowing Dysphagia type: unspecified Qualified Code(s): R13.10 - Dysphagia, unspecified
[2021-12-10] MEDS: PSEUDOEPHEDRINE HCL 30 MG TAB PO PRN (23:10)
[2021-12-11] MEDS: FIRST - Mouthwash BLM 119 ML PO SCH ×2 (05:30→13:29)
[2021-12-11 05:47] LABS: Mean Corpuscular Hgb Conc 34.6 g/dL (32-36); Mean Platelet Volume 9.9 fL (7.4-10.4); Platelet Count 102 K/uL (130-400)
[2021-12-11 06:09] LABS: BUN Creatinine Ratio 28.7 (10-20); Calcium 9.3 mg/dl (8.5-10.1); Creatinine Clr Calc Pharmacy 58.9 ml/min; Est GFR (African American) 73.8 ml/min; Est GFR (Non-African American) 63.7 ml/min; Magnesium 1.9 mg/dl (1.7-2.4); Potassium 3.7 mmol/L (3.5-5.1)
[2021-12-11 06:21] LABS: ALC (manual) 1.02 K/uL (1.2-3.4); ANC (manual) 15.03 K/uL (1.4-6.5); Anisocytosis Present; Dohle Bodies 1+; Hematocrit (blood only) 28.6 % (42-52); Hemoglobin 9.9 g/dL (14.0-18.0); Lymphocytes # (manual) 1.02 K/uL (1.2-3.4); Lymphocytes % (manual) 6.1 %; Mean Corpuscular Hemoglobin 36.1 pg (25-34); Mean Corpuscular Volume 104.4 fL (80-100); Monocytes # (manual) 0.72 K/uL (0.11-0.59); Monocytes % (manual) 4.3 %; Neutrophils # (manual) 15.03 K/uL (1.4-6.5); Neutrophils % (manual) 89.6 %; RDW Coefficient of Variation 20.7 % (11.5-14.5); RDW Standard Deviation 77.9 fL (36.4-46.3); Red Blood Count 2.74 M/uL (4.7-6.1); Tear Drop Cells 1+; White Blood Count 16.78 K/uL (4.8-10.8)
[2021-12-11] MEDS: BISOPROLOL FUMARATE 5 MG TAB PO SCH (08:54)
[2021-12-11] MEDS: ASPIRIN 81 MG CHEW PO SCH (08:54)
[2021-12-11] MEDS: ENOXAPARIN INJ 40 MG/0.4 ML SYR SQ SCH (08:55)
[2021-12-11] MEDS: dexAMETHasone 6 MG in SYRINGE 0 ML IV SCH (08:55)
[2021-12-11] MEDS: DEXAMETHASONE 5 MG/5 ML UDP PO SCH ×2 (08:55→13:29)
[2021-12-11] MEDS: PANTOprazole 40 MG TAB PO SCH (08:56)
[2021-12-11] MEDS: hydroCHLOROthiazide 25 MG TAB PO SCH (08:56)
[2021-12-11] MEDS: PSEUDOEPHEDRINE HCL 30 MG TAB PO PRN (08:57)
[2021-12-11] MEDS: HEPARIN 100 UNIT/ML 5ML FLUSH IV PRN ×2 (08:57→13:32)
[2021-12-11] MEDS: ROSUVASTATIN CALCIUM 20 MG TAB PO SCH (08:57)
--- NOTE | 2021-12-12 07:51 | Discharge Summary ---
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 Patient comes to the EMD today for complaints of increase in throat pain and difficulty swelling. Patient is still undergoing chemotherapy and is on cycle #2 whic appears to be carboplatin in combination with 5FU and pembrolizumab. He normally has some difficulty with dysphagia and has adjusted to this, but is having increase difficulty with swallowing small amount of liquid as well as his pills. He endorses difficulty swallowing a pill last night that resulted in him coughing quite a bit before getting it to come up. He normally will take his medications with a glass of milk, preferably chocolate. The patient had routine labs performed in the EMD and CT soft tissue of the neck. Labs were remarkable for mild leukocytosis- patient just received Neulasta- and CT scan of the neck was notable for moderate submucosal thickening within the uvula, hypopharynx, epiglottis and false chords. Patient was given 10mg IV Decadron in the EMD. Patient will be admitted for observation of his symptoms to improve with systemic steroids, will continue with magic mouthwash, and oral moisturizer. Will continue with Decadron 6mg IV q12 hours starting tomorrow. May benefit from updated swallow study. COVID and Influenza tests on admission are: NEGATIVE Principal Diagnosis dysphagia Discharge Exam General: awake, alert, no apparent distress Head: Normocephalic, atraumatic ENT: PERRL, EOMI, no pharyngeal exudate, mucous membranes moist, no lesions or abscess noted to soft palate or hypopharynx, no enlarged cervical node, trachea midline. Neuro: AAO x 3, speech clear and appropriate, strength intact bilaterally 5/5, sensation intact and equal all extremities and dermatomes, no pronator drift Chest: equal rise and fall of the chest, no accessory muscle use, no heaves or thrills, Clear to auscultation, on room air, Cardiac: Regular rate and rhythm, telemetry reviewed, skin warm dry, cap refill <3 seconds, peripheral pulses +2 no JVD, no murmur, GI: NABS x 4 quadrants, soft, nontender to palpation, no rebound, guarding or tenderness : Spontaneously voiding, no pain, no CVA tenderness, Extremities: Normal inspection, no peripheral edema or erythema, calfs nontender to palpation Psych: Normal mood and affect Skin: no rash or erythema Discharge Data Allergies Allergy/AdvReac Type Severity Reaction Status Date / Time Penicillins Allergy Mild Rash Verified 12/09/21 19:46 adhesive AdvReac Mild Verified 12/09/21 19:46 Consultations 12/09/21 16:58 ED Decision to Admit Stat Ordered Studies 12/09/21 13:58 CT soft tissue neck w con Stat 12/10/21 13:00 FL video swallow Routine Hospital Course (1) Difficulty in swallowing: Likely effect from his chemotherapy- his last radiation therapy was in 2020 - Will support with IV Decadron- 10mg IV already given by EMD- transition to 4- 6mg IV q12 starting today 12/10 - Magic mouthwash swish and swallow - oral moisturizer - may bring from home- pother browning use manuel stock - Medication with carrier- patient prefers milk - patient did well on speech eval. Patient will be discharged on a steroid taper. Patient having swish and swallow here. but will discharge on oral steroids for 10 days. Instructions noted below. (2) Tonsillar cancer: As above and per HPI (3) Throat swelling: As above (4) Hyperlipidemia: Continue with Rosuvastatin 40mg PO daily (5) Ascending aortic aneurysm: Last imaged in 2018 4.4 - continue with BB and cholesterol management - screenings with cardiology (6) Carotid stenosis: As above remain with BP control and lipid control screening with cardiology group (7) CAD (coronary artery disease): Single BMS to RCA 2015 - continue asa, BB, statin (8) High blood pressure: As above Total Time Total Time Spent Total Time Spent (In Minutes): 40 Discharge Plan Discharge Items Patient Disposition: Home - Self-Care Reason For Visit: HYPOPHARYNGEAL EDEMA Discharge Diagnosis: throat swelling Activity: Resume your previous activity Non-emergency contact: Primary Care Provider Call non-emergency contact if: you have any medication questions Follow-up/Referrals: PCP,NO [Primary Care Provider] - Diet: Heart Healthy Diet Texture: Easy to Chew Diet Comment: as noted below Addtl Attending Provider Instructions: 1. Easy to chew diet made slippery: avoid soft bread and all doghy, thick, pasty foods; add extra liquids/ sauces/ healthy oils to food to make slippery as needed. 2. When finished swallowing complete another dry swallow to clear throat of any residues. 3. Be sure to do complete oral care (brushing all surfaces of month and tongue) At least 2x/ day with one of those brushings always being prior to any oral intake in the morning. Minimizing oral bacteria is the best defense against developing aspiration pneumonia. 4. If using a carrier (eg apple sauce, yogurt) totake medications, always follow with a drink of liquid. 5. Try to replace throat clearing with swallowing. Keep water with you to help as needed. 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 This could help preserve adequate range of motion of swallow musculature to maintain ability to swallow safely. 7. If pharyngeal edema and pain return then swallowing safety could change quickly. will discharge on a steroid taper Pending Studies at Discharge: No Stand-Alone Forms: My [facility], Smoking Cessation Medications and DC Order Prescriptions: New Dexamethasone Intensol 1 mg/mL Drops See Rx Instructions .ROUTE .COMPLEX Qty: 30 RF: 0 pseudoephedrine HCl [Suphedrine] 30 mg Tablet 30 mg PO Q6H PRN (Reason: post nasal drip) Qty: 6 RF: 0 Continued bisoprolol fumarate 5 mg tablet 2.5 mg PO DAILY RF: 0 multivitamin Tablet 1 tab PO DAILY RF: 0 pantoprazole 40 mg tablet,delayed release (DR/EC) 40 mg PO QAM RF: 0 rosuvastatin 40 mg tablet 40 mg PO QAM RF: 0 tramadol 50 mg tablet 100 mg PO QAM MDD 6 TABS RF: 0 aspirin 81 mg tablet,chewable 81 mg PO PRN RF: 0 tramadol 50 mg tablet 50 mg PO QID MDD 6 TABS PRN (Reason: Pain) RF: 0 Discharge Orders: Discharge Order (Routine); Ordered 12/11/21 Ordered By: Bar Gary Admission Data Admit Date/Time: 12/09/21 17:35 Attending Provider: Bar Gary Admit Provider: Sha Murphy Primary Care Provider: PCP,NO Other Providers: Sha Murphy Other Interventions: Discharge Summary Assessment (RN) Last Done: 12/11/21 12:51 Coding Level of Care Code D/C DAY MANAGEMENT >30 MINS Diagnoses Difficulty in swallowing R13.10 Dysphagia type: unspecified Tonsillar cancer C09.9 Throat swelling R22.1 Hyperlipidemia E78.5 Ascending aortic aneurysm I71.2 Carotid stenosis I65.29 CAD (coronary artery disease) I25.10 High blood pressure I10
== END 2021-12-11 14:27 | disposition home or self-care (01) | DRG 392 ==
LOC: ED 13:47 → SUATTDRO 17:35 → 2N 17:35